=== PATIENT | female | born 1980 | race African-American/Black ===

== ENCOUNTER 2016-09-30 08:14 | Emergency (ER) | payer MEDICARE, MEDICAID ==
[~2016-09-30] VITALS: Ht 160 cm; Wt 81.6 kg
[~2016-09-30 08:14] MED LIST: ERGO1CAP6 PO; GABA-497 PO; IBUP800T24 PO; LORA-622 PO; OMEP20CA74 PO; PHEN-250
[2016-09-30 08:33] VITALS: BP 128/88
== END 2016-09-30 09:10 | disposition home or self-care (01) ==
LOC: ER 08:14
DX: S39.012A Strain of muscle, fascia and tendon of lower back, initial encounter (principal); G89.29 Other chronic pain; M54.5 Low back pain; F17.210 Nicotine dependence, cigarettes, uncomplicated; Z88.6 Allergy status to analgesic agent; Z88.8 Allergy status to other drugs, medicaments and biological substances; V43.32XA Unspecified car occupant injured in collision with other type car in nontraffic accident, initial encounter; Y93.89 Activity, other specified; Y92.89 Other specified places as the place of occurrence of the external cause; Y99.8 Other external cause status

== ENCOUNTER 2017-05-07 08:38 | Emergency (ER) | payer MEDICARE, MEDICAID ==
[~2017-05-07] VITALS: Ht 160 cm; Wt 74.8 kg
[~2017-05-07 08:38] MED LIST changes: -GABA-497 PO; +GABA300C10 PO
[2017-05-07 08:48] VITALS: BP 123/74
== END 2017-05-07 09:58 | disposition home or self-care (01) ==
LOC: ER 08:38
DX: S46.912A Strain of unspecified muscle, fascia and tendon at shoulder and upper arm level, left arm, initial encounter (principal); S00.83XA Contusion of other part of head, initial encounter; F17.210 Nicotine dependence, cigarettes, uncomplicated; F12.10 Cannabis abuse, uncomplicated; F41.9 Anxiety disorder, unspecified; Z88.6 Allergy status to analgesic agent; V49.9XXA Car occupant (driver) (passenger) injured in unspecified traffic accident, initial encounter; Y93.89 Activity, other specified; Y92.488 Other paved roadways as the place of occurrence of the external cause; Y99.8 Other external cause status